=== PATIENT | female | born 1930 | race African-American/Black ===

== ENCOUNTER 2017-01-19 09:21 | Inpatient (IN) | payer MEDICARE, BC, OTHER ==
[~2017-01-19] VITALS: Ht 157.5 cm; Wt 71.2 kg
[2017-01-19 10:41] VITALS: BP 142/77
[2017-01-19 10:55] LABS: CLARITY,URINE CLEAR; COLOR,URINE YELLOW
[2017-01-19 10:56] LABS: BACTERIA,URINE 0 /HPF (0-FEW); BILIRUBIN,URINE NEG (NEG); GLUCOSE,URINE NEG (NEG); NITRITE,URINE NEG (NEG); RBC,URINE 0 /HPF (0-2); UROBILINOGEN,URINE 0.2 mg/dL (0.2 mg/dL); WBC,URINE 0 /HPF (0-4)
[2017-01-19] MEDS ORDERED: FENTANYL PF 100 MCG/2 ML VIAL. IV PRN (11:45)
[2017-01-19] MEDS: IV NORMAL SALINE 1,000ML 1,000 ML IV SCH (11:53)
[2017-01-19 13:00] LABS: BASO # 0.1 x10^3/uL (0.0-0.2); BASO % 1 % (0-3); EOS # 0.1 x10^3/uL (0.0-0.7); EOS % 1 % (0-3); HEMATOCRIT 27.1 % (36.0-47.0); LYMPH % 27 % (24-48); MEAN CORPUSCULAR HEMOGLOBIN 27 pg (25-35); MEAN CORPUSCULAR HGB CONC 33 g/dL (31-37); MEAN CORPUSCULAR VOLUME 81 fL (79-100); MONO # 0.6 x10^3/uL (0.0-1.1); MONO % 8 % (0-9); NEUT # 4.5 x10^3uL (1.8-7.7); NEUT % 63 % (31-73); PLATELET COUNT 193 x10^3/uL (140-400); RED BLOOD COUNT 3.33 x10^6/uL (3.50-5.40); RED CELL DISTRIBUTION WIDTH 13.5 % (11.5-14.5); WHITE BLOOD COUNT 7.2 x10^3/uL (4.0-11.0)
[2017-01-19 13:11] LABS: ALBUMIN 3.1 g/dL (3.4-5.0); ALBUMIN/GLOBULIN RATIO 0.7 (1.0-1.7); CALCIUM 9.9 mg/dL (8.5-10.1); CREATININE 0.8 mg/dL (0.6-1.0); GFR 82.1; POTASSIUM 3.8 mmol/L (3.5-5.1); TOTAL BILIRUBIN 0.2 mg/dL (0.2-1.0); TOTAL PROTEIN 7.4 g/dL (6.4-8.2)
[2017-01-19] MEDS ORDERED: VALS1TAB33 PO (13:43)
[2017-01-19] MEDS ORDERED: LOPE2TAB27 PO (13:43)
[2017-01-19] MEDS ORDERED: FISH12002 PO (13:44)
[2017-01-19] MEDS ORDERED: CINN500C PO (13:44)
[2017-01-19] MEDS ORDERED: OMEG-33 PO (13:44)
[2017-01-19] MEDS ORDERED: MULT1TAB52 PO (13:45)
[2017-01-19] MEDS ORDERED: LINA5TAB PO (13:47)
[2017-01-19] MEDS ORDERED: FERR325T31 PO (13:47)
[2017-01-19] MEDS ORDERED: ASPI81TA2 PO (13:47)
[2017-01-19] MEDS ORDERED: ACET500T68 PO (13:48)
[2017-01-19] MEDS ORDERED: METF10002 PO (13:48)
[2017-01-19] MEDS ORDERED: GABA-586 PO (13:50)
[2017-01-19] MEDS ORDERED: ATEN25TA PO (13:50)
[2017-01-19] MEDS ORDERED: LISI-334 PO (13:50)
[2017-01-19] MEDS ORDERED: AMLO5TAB4 PO (13:51)
[2017-01-19] MEDS ORDERED: GUAI600T38 PO (13:51)
[2017-01-19] MEDS ORDERED: CARV25TA2 PO (13:52)
[2017-01-19] MEDS ORDERED: ESOM40CA PO (13:52)
[2017-01-19] MEDS ORDERED: INSU100I13 SQ (13:54)
[2017-01-19] MEDS ORDERED: INSU100V31 SQ (13:54)
[2017-01-19] MEDS ORDERED: ZOLPIDEM 5 MG TABLET. PO PRN (14:45)
[2017-01-19] MEDS ORDERED: ENOXAPARIN 30 MG/0.3 ML DISP.SYRIN. SQ SCH (15:00)
[2017-01-19] MEDS ORDERED: LOPERAMIDE 2 MG CAPSULE PO PRN (15:00)
[2017-01-19] MEDS ORDERED: DEXTROSE 50% 25 GM / 50ML DISP.SYRIN. IV PRN (15:00)
--- NOTE | 2017-01-19 15:53 | RAD ---
Indication low back pain. AP and lateral views of the lumbar spine were obtained. A cone-down view targeted to the lumbosacral junction was also obtained. There are degenerative changes. There is disc space narrowing and vacuum disc phenomenon at L4-5. There is slight anterolisthesis at the same level. Facet degenerative changes are noted in the mid and lower lumbar spine. There are degenerative changes in the lower thoracic spine. An acute bony finding is not seen. There are degenerative changes noted about the right hip. Vascular calcification is noted. There is very slight anterolisthesis of L5 relative to S1. IMPRESSION: Chronic changes. No acute finding seen
--- NOTE | 2017-01-19 15:57 | RAD ---
Indication abdominal pain. A single view of the chest was obtained as well as flat and upright films of the abdomen. The chest is compared to a study 01/21/2010. Note is made of a CT examination of the abdomen and pelvis 01/07/2017. Tortuous thoracic aorta is noted similar to the previous plain film. There is mild cardiac enlargement also similar. An acute parenchymal infiltrate in either lung is not seen. There is no pleural fluid or pneumothorax. There is a subtle nodular opacity in the right upper lobe probably reflecting scar. Follow-up imaging establishing stability should be considered. There are substantial degenerative changes about the shoulders. There is no free air. The abdominal gas pattern is normal. No organomegaly or abnormal calculi are seen. IMPRESSION: No acute finding seen in the chest or abdomen on plain films Probable minimal scarring in the right upper lobe.
[2017-01-19 16:16] VITALS: BP 146/70
[2017-01-19] MEDS ORDERED: NOVOLOG SQ SCH (16:30)
[2017-01-19] MEDS: INSULIN ASPART 300 UNITS/3 ML INSULN.PEN SQ SCH (16:30)
[2017-01-19] MEDS ORDERED: METFORMIN 500 MG TABLET. PO SCH (17:00)
--- NOTE | 2017-01-19 17:04 | RAD ---
Indication:Abdominal pain Grayscale images of the abdomen were obtained. Comparison none. Note is made of a CT examination of the abdomen and pelvis 01/07/2017. Liver:A focal mass lesion is not seen and the visualized liver. Gallbladder:Normal. The common bile duct diameter of approximately 4 mm is also normal Spleen:Normal Pancreas:Only the area of the head of the pancreas is seen. The cystic mass in the mid body of the pancreas, demonstrated on CT, is not well reproduced on this study Kidneys:Normal Abdominal aorta and IVC:As visualized normal but partially obscured by gas Ancillary findings:None Impression:No acute finding. The cystic mass seen in the body of the pancreas, demonstrated on recent CT, is not well represented on the study
[2017-01-19] MEDS: SUCRALFATE 1 GM/10 ML ORAL.SUSP. PO SCH ×2 (17:08→20:51)
[2017-01-19 19:31] VITALS: BP 184/77
[2017-01-19] MEDS: GABAPENTIN 300 MG CAPSULE. PO SCH (20:51)
[2017-01-19] MEDS: ACETAMINOPHEN 325 MG TABLET PO SCH (20:51)
[2017-01-19] MEDS ORDERED: OMEGA-3 FATTY ACIDS/FISH OIL 1,000 MG CAPSULE. PO SCH (21:00)
[2017-01-19] MEDS ORDERED: INSULIN DETEMIR 300 UNITS/3 ML INSULN.PEN. SQ SCH (21:00)
[2017-01-19] MEDS ORDERED: INSULIN GLARGINE HUM REC ANLOG SQ SCH (21:00)
[2017-01-19] MEDS ORDERED: NON FORMULARY ITEM (Cinnamon Bark (Cinnamon) 1,000 MG) PO SCH (21:00)
[2017-01-19 21:20] VITALS: BP 152/76
[2017-01-19] MEDS: CARVEDILOL 25 MG TABLET PO SCH (21:22)
[2017-01-20] MEDS: IV NORMAL SALINE 1,000ML 1,000 ML IV SCH (00:29)
[2017-01-20 01:06] VITALS: BP 127/77
[2017-01-20 05:21] VITALS: BP 137/69
[2017-01-20 06:39] LABS: BASO % 1 % (0-3); EOS # 0.1 x10^3/uL (0.0-0.7); EOS % 2 % (0-3); HEMATOCRIT 25.7 % (36.0-47.0); HEMOGLOBIN 8.4 g/dL (12.0-15.5); LYMPH # 2.3 x10^3/uL (1.0-4.8); LYMPH % 38 % (24-48); MEAN CORPUSCULAR HEMOGLOBIN 27 pg (25-35); MEAN CORPUSCULAR HGB CONC 33 g/dL (31-37); MEAN CORPUSCULAR VOLUME 82 fL (79-100); MONO # 0.7 x10^3/uL (0.0-1.1); MONO % 11 % (0-9); NEUT # 2.9 x10^3uL (1.8-7.7); NEUT % 48 % (31-73); PLATELET COUNT 179 x10^3/uL (140-400); RED BLOOD COUNT 3.14 x10^6/uL (3.50-5.40); RED CELL DISTRIBUTION WIDTH 13.2 % (11.5-14.5)
[2017-01-20 06:46] LABS: CALCIUM 9.6 mg/dL (8.5-10.1); CREATININE 0.7 mg/dL (0.6-1.0); GFR 95.8; POTASSIUM 3.8 mmol/L (3.5-5.1)
[2017-01-20] MEDS ORDERED: PANTOPRAZOLE 40 MG TABLET. PO SCH (07:30)
[2017-01-20] MEDS: INSULIN ASPART 300 UNITS/3 ML INSULN.PEN SQ SCH ×2 (07:30→12:04)
[2017-01-20] MEDS: SUCRALFATE 1 GM/10 ML ORAL.SUSP. PO SCH ×2 (07:39→12:02)
[2017-01-20] MEDS ORDERED: FERROUS SULFATE 325 MG TABLET PO SCH (08:00)
[2017-01-20] MEDS ORDERED: LINAGLIPTIN 5 MG TABLET PO SCH (09:00)
[2017-01-20] MEDS ORDERED: LOSARTAN 50 MG TABLET. PO SCH (09:00)
[2017-01-20] MEDS ORDERED: HYDROCHLOROTHIAZIDE 25 MG TABLET PO SCH (09:00)
[2017-01-20] MEDS ORDERED: PNEUMOC CONJ VACC 23-VALENT 0.5 ML VIAL. VAX IM ONE (09:00)
[2017-01-20] MEDS ORDERED: AMLODIPINE BESYLATE 5 MG TABLET PO SCH (09:00)
[2017-01-20] MEDS ORDERED: LISINOPRIL 20 MG TABLET PO SCH (09:00)
[2017-01-20] MEDS ORDERED: MULTIVITAMIN with MINERAL TABLET. PO SCH (09:00)
[2017-01-20] MEDS ORDERED: OMEGA PO SCH (09:00)
[2017-01-20] MEDS ORDERED: FATTY ACIDS PO SCH (09:00)
[2017-01-20] MEDS ORDERED: FLU VACC QUAD 2016-17 (36MOS+)/PF 0.5 ML SYRINGE. VAX IM ONE (09:00)
[2017-01-20] MEDS ORDERED: NON FORMULARY ITEM (Esomeprazole Magnesium (Nexium Capsule) 1 CAP) PO SCH (09:00)
[2017-01-20] MEDS ORDERED: ATENOLOL 25 MG TABLET PO SCH (09:00)
[2017-01-20] MEDS ORDERED: CARVEDILOL 25 MG TABLET PO SCH (09:00)
[2017-01-20] MEDS ORDERED: FISH OIL PO SCH (09:00)
[2017-01-20] MEDS: GABAPENTIN 300 MG CAPSULE. PO SCH (09:04)
[2017-01-20] MEDS: ACETAMINOPHEN 325 MG TABLET PO SCH (09:05)
[2017-01-20] MEDS: CARVEDILOL 25 MG TABLET PO SCH (09:05)
[2017-01-20 10:08] LABS: IRON,SERUM 28 ug/dL (50-170)
[2017-01-20 11:50] VITALS: BP 135/65
[2017-01-21] MEDS ORDERED: ASPIRIN 81 MG TAB.CHEW PO SCH (09:00)
[2017-01-21 15:10] LABS: HCV ANTIBODY 0.4 s/co ratio (0.0-0.9); HEP A IGM ABDY Negative (Negative)
== END 2017-01-20 13:11 | disposition short-term general hospital (02) | DRG 439 ==
LOC: 1 SOUTH 09:21
PROVIDERS: ADMIT Family Medicine; ATTEND Family Medicine
DX: K86.89 Other specified diseases of pancreas (principal); E44.0 Moderate protein-calorie malnutrition; J44.9 Chronic obstructive pulmonary disease, unspecified; R63.4 Abnormal weight loss; E11.41 Type 2 diabetes mellitus with diabetic mononeuropathy; E11.21 Type 2 diabetes mellitus with diabetic nephropathy; R19.7 Diarrhea, unspecified; I10 Essential (primary) hypertension; M19.90 Unspecified osteoarthritis, unspecified site; J30.9 Allergic rhinitis, unspecified; Z80.3 Family history of malignant neoplasm of breast; Z86.73 Personal history of transient ischemic attack (TIA), and cerebral infarction without residual deficits; Z80.0 Family history of malignant neoplasm of digestive organs; Z68.28 Body mass index [BMI] 28.0-28.9, adult; Z79.899 Other long term (current) drug therapy; D50.9 Iron deficiency anemia, unspecified
CPT/HCPCS: 36415; 72100; 74022; 76700; 80048; 80053; 80074; 81001; 82150; 82947; 83540; 83550; 83605; 83690; 84134; 85027; 85045; 85379; 87086; 90686; 90732; J1650; J1815; J7030